=== PATIENT | male | born 1970 | race African-American/Black ===

== ENCOUNTER 2024-11-08 21:24 | Emergency (ER) | payer OTHER ==
[2024-11-08] MEDS ORDERED: Ondansetron ODT 4 MG TAB ONE (21:38)
[2024-11-08] MEDS ORDERED: Dicyclomine 20 MG/2 ML VIAL ONE (21:38)
[2024-11-08] MEDS ORDERED: Lorazepam 2 MG/ML VIAL ONE (21:38)
[2024-11-08] MEDS ORDERED: Mag-Al 1200 mg/1200 mg/30 ML UDCUP ONE (21:39)
[2024-11-08] MEDS ORDERED: Sucralfate 1 GM TAB ONE (21:39)
[2024-11-08] MEDS ORDERED: Lidocaine Viscous Sol 2% 15 ml UD Cup ONE (21:39)
[2024-11-08 22:03] LABS: #Basophils 0.1 thou/uL (0.0-0.2); #Eosinophils 0.2 thou/uL (0.0-0.7); #Lymphocytes 0.5 thou/uL (1.20-3.40); #Monocytes 0.4 thou/uL (0.11-0.59); %Basophils 1.3 % (0.0-1.0); %Eosinophils 3.1 % (0.0-10.0); %Lymphocytes 8.9 % (21.0-51.0); %Monocytes 7.5 % (0.0-10.0); %Neutrophils 79.1 % (42.0-75.0); Hematocrit 28.9 % (42.0-52.0); Hemoglobin 9.9 g/dL (14.0-18.0); Mean Corpuscular HGB CONC 34.3 g/dL (32.0-36.0); Mean Corpuscular Volume 84.5 fl (78.0-98.0); Mean Platelet Volume 6.2 fL (7.4-10.4); Platelet Count 123 10x3/uL (130-400); RBC Distribution Width 15.6 % (11.5-14.5); Red Blood Cell (RBC) Count 3.42 mill/uL (4.70-6.10)
[2024-11-08 22:17] LABS: ALT (SGPT) Less than 4 U/L (Less than 45); AST (SGOT) 12 U/L (11-34); Albumin 4.1 g/dL (3.1-4.5); Alkaline Phosphatase 113 U/L (40-110); Anion Gap 22 mmol/L (10-20); BUN (Urea Nitrogen) 35 mg/dL (8.4-25.7); Bilirubin, Total 0.9 mg/dL (0.3-1.2); Calc. Creatinine Clearance 0 mL/min (70-130); Calcium 8.7 mg/dL (7.8-10.44); Carbon Dioxide 23 mmol/L (22-29); Chloride 97 mmol/L (98-107); Estimated GFR 7; Globulin 3.6 g/dL (2.4-3.5); Glucose 119 mg/dL (70-105); Potassium 3.9 mmol/L (3.5-5.1); Protein, Total 7.7 g/dL (6.0-8.3); Sodium 138 mmol/L (136-145)
== END 2024-11-08 22:49 | disposition home or self-care (01) ==
LOC: BURERS 21:24
DX: R11.2 Nausea with vomiting, unspecified (principal); I12.0 Hypertensive chronic kidney disease with stage 5 chronic kidney disease or end stage renal disease; N18.6 End stage renal disease; Z99.2 Dependence on renal dialysis; E11.22 Type 2 diabetes mellitus with diabetic chronic kidney disease
CPT/HCPCS: 36415; 80053; 85025; 96372; 99284; J2060; Q0162